=== PATIENT | female | born 1970 | race Caucasian/White ===

== ENCOUNTER → 2024-11-02 13:13 | Outpatient (REF) | payer SELFPAY | LOC: HWRAD 13:13 | PROVIDERS: ATTENDING PHYSICIAN Internal Medicine Cardiovascular Disease; FAMILY PHYSICIAN Family Medicine | DX: R00.2 Palpitations (principal); I49.3 Ventricular premature depolarization; E78.5 Hyperlipidemia, unspecified | CPT/HCPCS: 75571 ==